=== PATIENT | male | born 1965 | race Caucasian/White ===

== ENCOUNTER 2021-06-24 12:48 | Emergency (ER) | payer BC, OTHER ==
--- NOTE | 2021-06-24 12:52 | ERPHSYRPT ---
- History of Present Illness Time Seen by Provider: 06/24/21 12:52 Source: patient Exam Limitations: no limitations Physician History: This is a right-handed white male patient of Dr. Rigoberto Laird who was working on car vehicle when he suffered a superficial laceration to the dorsal aspect of his right hand. Patient's tetanus status is not up-to-date. Occurred: just prior to arrival Method of Injury: other Severity of Pain-Max: none Severity of Pain-Current: none Extremities Pain Location: hand: right (Dorsal aspect) Modifying Factors: Improves With: nothing Associated Symptoms: none Allergies/Adverse Reactions: No Known Drug Allergies Allergy (Verified 06/24/21 12:59) Home Medications: Fluoxetine HCl [Fluoxetine Dr] 20 mg PO DAILY 06/24/21 [History] LORazepam [Lorazepam] 2 mg PO DAILY 06/24/21 [History] Mirtazapine 30 mg [Remeron 30 mg] 30 mg PO DAILY 06/24/21 [History] Vilazodone HCl [Viibryd] 1 each PO DAILY 06/24/21 [History] Travel Risk - International Travel Have you traveled outside of the country in past 3 weeks: No - Coronavirus Screening Are you exhibiting any of the following symptoms?: No Close contact with a COVID-19 positive Pt in past 14-21 Days: No - Review of Systems Constitutional: No Symptoms Eyes: No Symptoms Ears, Nose, & Throat: No Symptoms Respiratory: No Symptoms Cardiac: No Symptoms Abdominal/Gastrointestinal: No Symptoms Genitourinary Symptoms: No Symptoms Musculoskeletal: Injury (Dorsal aspect right hand) Skin: Other (Superficial stellate laceration dorsal aspect right hand) Neurological: No Symptoms Psychological: No Symptoms Endocrine: No Symptoms Hematologic/Lymphatic: No Symptoms Immunological/Allergic: No Symptoms - Past Medical History Pertinent Past Medical History: Yes - Past Surgical History Past Surgical History: Yes - Nursing Vital Signs Nursing Vital Signs: Initial Vital Signs Temperature 97.8 F 06/24/21 12:52 Pulse Rate 79 06/24/21 12:52 Respiratory Rate 18 06/24/21 12:52 Blood Pressure 131/82 06/24/21 12:52 O2 Sat by Pulse Oximetry 97 06/24/21 12:52 Pain Scale Pain Intensity 0 - Physical Exam General Appearance: no apparent distress, alert Eyes, Ears, Nose, Throat Exam: normal ENT inspection, moist mucous membranes Neck Exam: normal inspection, non-tender, supple, full range of motion Cardiovascular/Respiratory Exam: chest non-tender, no respiratory distress Abdominal Exam: non-tender Back Exam: normal inspection, normal range of motion, No CVA tenderness, No vertebral tenderness Shoulder Exam: normal inspection, non-tender, no evidence of injury, normal ROM Elbow/Forearm Exam: normal inspection, non-tender, no evidence of injury, normal ROM Wrist Exam: normal inspection, non-tender, no evidence of injury, normal ROM Hand Exam: non-tender, normal ROM, laceration (To centimeter stellate, superficial laceration dorsal aspect right hand. No active bleeding.) Neuro/Tendon Exam: normal sensation, normal motor functions, normal tendon functions, no evidence tendon injury Mental Status Exam: alert, oriented x 3, cooperative Skin Exam: laceration (Laceration dorsal aspect right hand. See above) SpO2 Interpretation: normal O2 Delivery: Room Air Procedures - Laceration/Wound Repair Right Dorsal Hand Time of Procedure: 13:15 Wound Location: Right, hand (Dorsal aspect) Wound Length (cm): 2 Wound's Depth, Shape: superficial, stellate Wound Explored: clean (In bloodless field to the base no foreign body noted) Irrigated: Yes Hibiclens Prep: Yes Wound Repaired With: Steri-strips, Dermabond (And benzoin was applied) Sterile Dressing Applied?: Yes Progress: 06/24/21 13:24 The entire right hand was soaked in Hibiclens saline solution. I then scrubbed the wound out aggressively with the same type of solution. There was no bleeding. I was unable to open the laceration to any significance. There were no flaps present. Therefore we covered wound with benzoin solution followed by Dermabond and 1/2 inch Steri-Strips. We then placed a pressure dressing. There are no complications based on procedure well. - Course Nursing assessment & vital signs reviewed: Yes Ordered Tests: Active Orders 24 hr Category Date Time Status Wound Care STAT Care 06/24/21 13:19 Ordered Medication Summary Discontinued Medications Generic Name Dose Route Start Last Admin Trade Name Freq PRN Reason Stop Dose Admin Diphtheria/Tetanus/Acell Pertussis 0.5 ml 06/24/21 13:16 Tdap --Diph,Pertuss(Acell),Tet Vac/Pf 0.5 Ml Vial IM 06/24/21 13:17 .ONCE ONE - Progress Progress: improved Counseled pt/family regarding: diagnosis - Departure Departure Disposition: Home Clinical Impression: Laceration of right hand Condition: Stable Critical Care Time: No Referrals: TERE BEARD [Primary Care Provider] - Follow Up with PCP Additional Instructions: Keep current dressing in place until tomorrow evening. Tomorrow evening, may remove the top dressings leaving the Steri-Strips in place. At that time you may wash the area with soap and water. Keep the Steri-Strips in place until they fall off in approximately 7 days. Trim the Steri-Strips as they curl up. Use Tylenol and ibuprofen for pain control if there are no contraindications.
[2021-06-24 12:59] VITALS: BP 131/82; PULSE 79; O2SAT 97
[2021-06-24] MEDS ORDERED: Adacel Vial IM ONE ×2 (13:16→13:19)
== END 2021-06-24 14:02 | disposition home or self-care (01) ==
LOC: MERGE 12:48 → ED 12:48
DX: S61.411A Laceration without foreign body of right hand, initial encounter (principal); W45.8XXA Other foreign body or object entering through skin, initial encounter; Y93.89 Activity, other specified; Y92.89 Other specified places as the place of occurrence of the external cause
CPT/HCPCS: 12001; 90471; 90715; 99283

== ENCOUNTER 2022-05-15 18:54 | Emergency (ER) | payer BC ==
[2022-05-15] MEDS ORDERED: Sodium Chloride 0.9% 1000 ML 1,000 ML IV SCH (19:45)
[2022-05-15] MEDS ORDERED: Sodium Chloride 0.9% 1000 ML 1,000 ML ONE (19:52)
[2022-05-15 19:55] LABS: Absolute Neutrophil Ct (ANC) 5.65 x10^3/uL (1.4-6.9); Basophil (Absolute #) 0.05 x10^3/uL (0-0.4); Eosinophil % 1.4 % (0.00-5.0); Eosinophil (Absolute #) 0.11 x10^3/uL (0-0.5); Hematocrit 40.7 % (42-50); Hemoglobin 12.7 g/dL (12.5-18.0); Lymphocyte (Absolute #) 1.32 x10^3/uL (1.0-4.6); Lymphocytes % 17.3 % (24.0-44.0); Mean Cell Volume 95.3 fL (78-100); Mean Corpuscular Hemoglobin 29.7 pg (26-32); Mean Corpuscular Hgb Concent. 31.2 g/dL (32-36); Mean Platelet Volume 10.2 fL (7.5-11.0); Monocytes % 6.5 % (0.0-12.0); Neutrophil % 73.8 % (36.0-66.0); Platelet Count 287 x10^3/uL (150-450); Red Blood Count 4.27 x10^6/uL (4.1-5.6); White Blood Count 7.7 x10^3/uL (4.0-10.5)
[2022-05-15 20:14] LABS: ALBUMIN 4.3 g/dL (3.5-5.0); ALKALINE PHOSPHATASE 62 U/L (38-126); ANION GAP 10.3 MEQ/L (5-15); BLOOD UREA NITROGEN 9 mg/dL (9-20); CHLORIDE 105 mmol/L (98-107); Calcium 9.2 mg/dL (8.4-10.2); Carbon Dioxide 26 mmol/L (22-30); Creatinine 1 1.04 mg/dL (0.66-1.25); EST GLOMERULAR FILTRATION RATE > 60.0 ML/MIN; Glucose 111 mg/dL (74-106); Potassium 3.3 mmol/L (3.5-5.1); SGOT/AST 22 U/L (17-59); SGPT/ALT 18 U/L (0-50); SODIUM 138 mmol/L (137-145); Total Protein 7.2 g/dL (6.3-8.2)
--- NOTE | 2022-05-15 20:23 | XRAY ---
Indication: Stroke. Comparison: None Portable chest demonstrates normal heart and lungs. Bony thorax intact with degenerative changes.
--- NOTE | 2022-05-15 20:28 | XRAY ---
Indication: Slurred speech and blurred vision. Conventional contrast enhanced CTA neck performed using 100 cc Isovue 370 contrast. Two-dimensional sagittal and coronal reformatted images obtained. Additional 3-dimensional reformatted images obtained using a separate workstation. Comparison: None Visualized aortic arch is normal in course and caliber with widely patent branch right brachiocephalic, left common carotid, and left subclavian arteries. The common carotid, carotid bulb, internal carotid, and external carotid arteries are bilaterally normal in CTA appearance. Vertebral arteries are also normal in CTA appearance bilaterally with the right slightly larger in caliber. Visualized soft tissues demonstrate homogeneous enhancement of the thyroid gland. Supra and infraglottic airway widely patent. A few subcentimeter cervical and submandibular lymph nodes bilaterally, none pathologically enlarged. Visualized osseous structures intact. Patient is edentulous. Minimal/mild C3-C6 degenerative changes. Lung apices are clear. Impression: Normal CTA neck with contrast exam. Incidental C3-C7 degenerative changes.
--- NOTE | 2022-05-15 20:34 | XRAY ---
Indication: Slurred speech and blurred vision. Conventional contrast enhanced CTA head performed using 100 cc Isovue 370 contrast. Two-dimensional sagittal and coronal reformatted images obtained. Additional 3-dimensional reformatted images obtained using a separate workstation. Comparison: None Distal internal carotid arteries are bilaterally symmetric without critical stenosis, obstruction, or AV malformation. Normal carotid terminus with normal branching A1 and M1 segments bilaterally. More distal left/right anterior cerebral, left/right middle cerebral, and anterior communicating arteries are normal in CTA appearance. Incidental anatomic variant for origin of the left posterior cerebral artery. Posterior circulation demonstrates normal CTA appearance to the basilar, left/right posterior cerebral, and left/right superior cerebellar arteries. Venous drainage/sinuses are unremarkable. Brain parenchyma is negative for abnormal enhancing intra or extra-axial mass. Impression: Normal CTA head with contrast exam.
[2022-05-15 20:42] LABS: NT PRO BNP 41.9 pg/mL (0-900)
[2022-05-15] MEDS ORDERED: BABY ASPIRIN 81 MG CHEW PO ONE (21:20)
[2022-05-15 21:55] LABS: Mucus SLIGHT /HPF (NEGATIVE)
[2022-05-15 21:56] LABS: Appearance CLEAR (CLEAR); Bilirubin NEGATIVE (NEGATIVE); Glucose NEGATIVE (NEGATIVE); Ketones NEGATIVE (NEGATIVE); Ph 6.5 (5-6); Protein,Urine Dip NEGATIVE (Negative); RBC TRACE-INTACT Ery/ul (0-5)
[2022-05-15 21:57] LABS: Dipstick done @ ? MAIN LAB; Nitrite NEGATIVE (NEGATIVE); Urine Cultured Indicated? NO; Urobilinogen 0.2 mg/dL (0-1)
[2022-05-15 22:06] LABS: Amphetamine,Urine POSITIVE (NEGATIVE); Barbiturate,Urine NEGATIVE (NEGATIVE); Benzodiazepine,Urine NEGATIVE (NEGATIVE); Cocaine,Urine NEGATIVE (NEGATIVE); Methadone,Urine NEGATIVE (NEGATIVE); Opiate,Urine NEGATIVE (NEGATIVE); THC,Urine NEGATIVE (NEGATIVE)
[2022-05-15 22:10] VITALS: BP 122/82; PULSE 66; O2SAT 97
[2022-05-15 22:15] LABS: PCP,Urine NEGATIVE (NEGATIVE)
--- NOTE | 2022-05-15 22:17 | ERPHSYRPT ---
- History of Present Illness Time Seen by Provider: 05/15/22 19:09 Source: patient Exam Limitations: no limitations Patient Subjective Stated Complaint: C/O slurred speech this morning. Patient has some "lost time" today. indicates he is being forgetful today; didn't remember speaking to certain people today or driving the car. indicates he was fine/normal at 0620 today when she left for work and that patient called her at approx 0815 with slurred speech. Triage Nursing Assessment: Patient is alert and oriented but did state this as the month of May when asked what the month is. He did give the correct date of the . Attempted to complete NIHSS scale upon patient arrival but patient taken to CT before test completed. Able to complete LOC commands without difficulties, completed BUE and BLE motor function with no drift, and sensory noted to be normal before going to CT. Noted tremors to bilateral hands that are worse in the right; and patient indicates that this is normal for patient and not new. Physician History: 56-year-old male with history of OCD, bipolar disorder, history of stroke with some left visual impairment presented in the ER with with chief complaint of confusion and losing track of time since morning. As per report patient got confused between 6:30 AM-8:15 AM when he tried to back his truck and realized that tree trunks were moving despite having no wend and called his . He did not go to work and talk to his daughter twice. When came back from work this evening she noticed he had slurring of speech which is much improved since then and is almost normal now. Part patient has OCD and has reputation of certain actions daily which she is not doing today which means there is something wrong with him. Also when asked about earlier this morning he had no recollection of any event/calling /daughter. He denies any focal numbness tingling or weakness. Denies any visual disturbance now but earlier reported some black spots bilaterally. No chest pain palpitations or shortness of breath. Denies use of alcohol or drugs. later did report that patient has not been taking his Adderall for the last few days as he ran out. Timing/Duration: today, sudden Severity: moderate Character of Deficits: impaired speech Baseline/Normal Cognition: alert oriented x 3 Current Cognition: alert oriented x 3 Associated Symptoms: denies symptoms Allergies/Adverse Reactions: No Known Drug Allergies Allergy (Verified 05/15/22 19:04) Home Medications: ALPRAZolam 1 MG [Xanax 1 mg] 1 mg PO BID 06/16/14 [History] Bupropion HCl Xl 150 mg [Wellbutrin XL 150 MG] 150 mg PO DAILY 06/16/14 [History] Dextroamphetamine/Amphetamine [Adderall 10 mg Tablet] 10 mg PO BID 06/16/14 [History] Fluoxetine HCl [Fluoxetine Dr] 20 mg PO DAILY 06/24/21 [History] LORazepam [Lorazepam] 2 mg PO DAILY 06/24/21 [History] Mirtazapine 30 mg [Remeron 30 mg] 30 mg PO DAILY 06/24/21 [History] Vilazodone HCl [Viibryd] 1 each PO DAILY 06/24/21 [History] Hx Tetanus, Diphtheria Vaccination/Date Given: Yes Hx Influenza Vaccination/Date Given: No Hx Pneumococcal Vaccination/Date Given: No Immunizations Up to Date: Yes Travel Risk - International Travel Have you traveled outside of the country in past 3 weeks: No - Coronavirus Screening Are you exhibiting any of the following symptoms?: No Close contact with a COVID-19 positive Pt in past 14-21 Days: No - Vaccine Status Have you recieved a Covid-19 vaccination: No - Review of Systems Constitutional: No Symptoms Eyes: No Symptoms Ears, Nose, & Throat: No Symptoms Respiratory: No Symptoms Cardiac: No Symptoms Abdominal/Gastrointestinal: No Symptoms Genitourinary Symptoms: No Symptoms Musculoskeletal: No Symptoms Skin: No Symptoms Neurological: Speech Changes Psychological: Depression Endocrine: No Symptoms Hematologic/Lymphatic: No Symptoms Immunological/Allergic: No Symptoms - Past Medical History Pertinent Past Medical History: Yes Psycho-Social History: Depression, Anxiety - Past Surgical History Past Surgical History: No - Social History Smoking Status: Former smoker Exposure to second hand smoke: No Drug Use: none Patient Lives Alone: No - Nursing Vital Signs Nursing Vital Signs: Initial Vital Signs Temperature 97.8 F 05/15/22 19:06 Pulse Rate 90 05/15/22 19:06 Respiratory Rate 18 05/15/22 19:06 Blood Pressure 125/86 05/15/22 19:06 O2 Sat by Pulse Oximetry 97 05/15/22 19:06 Pain Scale Pain Intensity 0 - [place] Coma Scale Best Eye Response ([place]): (4) open spontaneously Best Verbal Response ([place]): (5) oriented Best Motor Response ([place]): (6) obeys commands [place] Total: 15 - Physical Exam General Appearance: no apparent distress, alert Eye Exam: bilateral eye: normal inspection, PERRL, EOMI Ears, Nose, Throat Exam: normal ENT inspection, TMs normal, pharynx normal, moist mucous membranes Neck Exam: normal inspection, non-tender, supple, full range of motion Respiratory: normal breath sounds, lungs clear Cardiovascular: regular rate/rhythm, normal heart sounds Gastrointestinal: soft, normal bowel sounds, No tenderness Back Exam: normal inspection, normal range of motion, CVA tenderness Extremity Exam: normal inspection, normal range of motion, pelvis stable Mental Status: alert, oriented x 3, cooperative, 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 Exam: normal hearing, normal speech, PERRL, No facial asymmetry, No facial droop Coordination/Gait: normal finger to nose, normal cerebellar function Motor/Sensory: no motor deficit, no sensory deficit, no pronator drift, negative Babinski's sign DTR: bicep (R): 2+, bicep (L): 2+, knee (R): 2+, knee (L): 2+ Skin Exam: normal color SpO2 Interpretation: normal SpO2: 97 O2 Delivery: Room Air - Course EKG Interpreted by Me: RATE (74), Sinus Rhythm, NORMAL AXIS, NORMAL INTERVALS, Non-specific ST Changes, Other (Nonspecific T wave changes) Ordered Tests: Active Orders 24 hr Category Date Time Status Clean Catch Urine Specimen STAT Care 05/15/22 21:24 Active EKG-ER Only STAT Care 05/15/22 19:31 Active IV Insertion STAT Care 05/15/22 19:31 Active CHEST 1 VIEW (PORTABLE) Stat Exams 05/15/22 19:[address] ANGIOGRAPHY NECK [CT] Stat Exams 05/15/22 18:58 Completed CTA HEAD W AND/OR WO CONTRAST [CT] Stat Exams 05/15/22 18:58 Completed HEAD WITHOUT CONTRAST [CT] Stat Exams 05/15/22 19:00 Taken BNP [NT PRO BNP] Stat Lab 05/15/22 19:51 Completed CBC W DIFF Stat Lab 05/15/22 19:51 Completed CMP Stat Lab 05/15/22 19:51 Completed Lactic Acid Stat Lab 05/15/22 19:31 Completed MAG [MAGNESIUM] Stat Lab 05/15/22 19:51 Completed TROPONIN Q4H Lab 05/15/22 19:51 Completed TROPONIN Q4H Lab 05/15/22 23:45 Ordered TROPONIN Q4H Lab 05/16/22 03:45 Ordered UA W/RFX CULTURE Stat Lab 05/15/22 21:26 Completed Urine Triage Profile Stat Lab 05/15/22 21:26 Received Medication Summary Generic Name Dose Route Start Last Admin Trade Name Freq PRN Reason Stop Dose Admin Sodium Chloride 1,000 mls @ 100 mls/hr 05/15/22 19:45 05/15/22 19:52 Sodium Chloride 0.9% 1000 Ml IV 06/14/22 19:44 100 mls/hr .Q10H EMILIA Administration Discontinued Medications Generic Name Dose Route Start Last Admin Trade Name Freq PRN Reason Stop Dose Admin Aspirin 324 mg 05/15/22 21:20 05/15/22 22:01 Aspirin 81 Mg Tab.Chew PO 05/15/22 21:21 324 mg STAT ONE Administration Lab/Rad Data: Laboratory Result Diagrams 05/15/22 19:51 05/15/22 19:51 Laboratory Results 05/15/22 05/15/22 05/15/22 Range/Units 21:26 21:26 19:51 WBC (4.0-10.5) x10^3/uL RBC (4.1-5.6) x10^6/uL Hgb (12.5-18.0) g/dL Hct (42-50) % MCV (78-100) fL MCH (26-32) pg MCHC (32-36) g/dL RDW (11.5-14.0) % Plt Count (150-450) x10^3/uL MPV (7.5-11.0) fL Gran % (36.0-66.0) % Immature Gran % (Auto) (0.00-0.4) % Nucleat RBC Rel Count (0.00-0.1) % Eos # (Auto) (0-0.5) x10^3/uL Immature Gran # (Auto) (0.00-0.03) x10^3u/L Absolute Lymphs (auto) (1.0-4.6) x10^3/uL Absolute Monos (auto) (0.0-1.3) x10^3/uL Absolute Nucleated RBC (0.00-0.01) x10^3u/L Lymphocytes % (24.0-44.0) % Monocytes % (0.0-12.0) % Eosinophils % (0.00-5.0) % Basophils % (0.0-0.4) % Absolute Granulocytes (1.4-6.9) x10^3/uL Basophils # (0-0.4) x10^3/uL Sodium (137-145) mmol/L Potassium (3.5-5.1) mmol/L Chloride (98-107) mmol/L Carbon Dioxide (22-30) mmol/L Anion Gap (5-15) MEQ/L BUN (9-20) mg/dL Creatinine (0.66-1.25) mg/dL Estimated GFR ML/MIN Glucose (74-106) mg/dL Lactic Acid (0.4-2.0) Calcium (8.4-10.2) mg/dL Magnesium (1.6-2.3) mg/dL Total Bilirubin (0.2-1.3) mg/dL AST (17-59) U/L ALT (0-50) U/L Alkaline Phosphatase (38-126) U/L Troponin I < 0.012 (0.000-0.034) ng/mL NT-Pro-B Natriuret Pep (0-900) pg/mL Serum Total Protein (6.3-8.2) g/dL Albumin (3.5-5.0) g/dL Urinalys Dipstick Clnc MAIN LAB Urine Color YELLOW (YELLOW) Urine Appearance CLEAR (CLEAR) Urine pH 6.5 (5-6) Ur Specific Faith 1.010 (1.005-1.025) POC Urine Protein Conf NEGATIVE (Negative) Urine Ketones NEGATIVE (NEGATIVE) Urine Nitrite NEGATIVE (NEGATIVE) Urine Bilirubin NEGATIVE (NEGATIVE) Urine Urobilinogen 0.2 (0-1) mg/dL Urine Leukocytes TRACE (NEGATIVE) Urine WBC (Auto) 3-5 (0-5) /HPF Urine RBC (Auto) NONE (0-2) /HPF U Epithel Cells (Auto) NONE (FEW) /HPF Urine Bacteria (Auto) NONE (NEGATIVE) /HPF Urine RBC TRACE-INTACT (0-5) Armin/ul Urine Mucus (Auto) SLIGHT (NEGATIVE) /HPF Ur Culture Indicated? NO Urine Glucose NEGATIVE (NEGATIVE) mg/dL Urine Opiates Level NEGATIVE (NEGATIVE) Ur Methadone NEGATIVE (NEGATIVE) Urine Barbiturates NEGATIVE (NEGATIVE) Ur Phencyclidine (PCP) NEGATIVE (NEGATIVE) Urine Amphetamine POSITIVE (NEGATIVE) U Benzodiazepine Level NEGATIVE (NEGATIVE) Urine Cocaine NEGATIVE (NEGATIVE) Urine Marijuana (THC) NEGATIVE (NEGATIVE) 05/15/22 05/15/22 05/15/22 Range/Units 19:51 19:51 19:51 WBC 7.7 (4.0-10.5) x10^3/uL RBC 4.27 (4.1-5.6) x10^6/uL Hgb 12.7 (12.5-18.0) g/dL Hct 40.7 L (42-50) % MCV 95.3 (78-100) fL MCH 29.7 (26-32) pg MCHC 31.2 L (32-36) g/dL RDW 13.0 (11.5-14.0) % Plt Count 287 (150-450) x10^3/uL MPV 10.2 (7.5-11.0) fL Gran % 73.8 H (36.0-66.0) % Immature Gran % (Auto) 0.3 (0.00-0.4) % Nucleat RBC Rel Count 0.0 (0.00-0.1) % Eos # (Auto) 0.11 (0-0.5) x10^3/uL Immature Gran # (Auto) 0.02 (0.00-0.03) x10^3u/L Absolute Lymphs (auto) 1.32 (1.0-4.6) x10^3/uL Absolute Monos (auto) 0.50 (0.0-1.3) x10^3/uL Absolute Nucleated RBC 0.00 (0.00-0.01) x10^3u/L Lymphocytes % 17.3 L (24.0-44.0) % Monocytes % 6.5 (0.0-12.0) % Eosinophils % 1.4 (0.00-5.0) % Basophils % 0.7 (0.0-0.4) % Absolute Granulocytes 5.65 (1.4-6.9) x10^3/uL Basophils # 0.05 (0-0.4) x10^3/uL Sodium 138 (137-145) mmol/L Potassium 3.3 L (3.5-5.1) mmol/L Chloride 105 (98-107) mmol/L Carbon Dioxide 26 (22-30) mmol/L Anion Gap 10.3 (5-15) MEQ/L BUN 9 (9-20) mg/dL Creatinine 1.04 (0.66-1.25) mg/dL Estimated GFR > 60.0 ML/MIN Glucose 111 H (74-106) mg/dL Lactic Acid (0.4-2.0) Calcium 9.2 (8.4-10.2) mg/dL Magnesium 2.0 (1.6-2.3) mg/dL Total Bilirubin 0.50 (0.2-1.3) mg/dL AST 22 (17-59) U/L ALT 18 (0-50) U/L Alkaline Phosphatase 62 (38-126) U/L Troponin I (0.000-0.034) ng/mL NT-Pro-B Natriuret Pep 41.9 (0-900) pg/mL Serum Total Protein 7.2 (6.3-8.2) g/dL Albumin 4.3 (3.5-5.0) g/dL Urinalys Dipstick Clnc Urine Color (YELLOW) Urine Appearance (CLEAR) Urine pH (5-6) Ur Specific Faith (1.005-1.025) POC Urine Protein Conf (Negative) Urine Ketones (NEGATIVE) Urine Nitrite (NEGATIVE) Urine Bilirubin (NEGATIVE) Urine Urobilinogen (0-1) mg/dL Urine Leukocytes (NEGATIVE) Urine WBC (Auto) (0-5) /HPF Urine RBC (Auto) (0-2) /HPF U Epithel Cells (Auto) (FEW) /HPF Urine Bacteria (Auto) (NEGATIVE) /HPF Urine RBC (0-5) Armin/ul Urine Mucus (Auto) (NEGATIVE) /HPF Ur Culture Indicated? Urine Glucose (NEGATIVE) mg/dL Urine Opiates Level (NEGATIVE) Ur Methadone (NEGATIVE) Urine Barbiturates (NEGATIVE) Ur Phencyclidine (PCP) (NEGATIVE) Urine Amphetamine (NEGATIVE) U Benzodiazepine Level (NEGATIVE) Urine Cocaine (NEGATIVE) Urine Marijuana (THC) (NEGATIVE) 05/15/22 Range/Units 19:31 WBC (4.0-10.5) x10^3/uL RBC (4.1-5.6) x10^6/uL Hgb (12.5-18.0) g/dL Hct (42-50) % MCV (78-100) fL MCH (26-32) pg MCHC (32-36) g/dL RDW (11.5-14.0) % Plt Count (150-450) x10^3/uL MPV (7.5-11.0) fL Gran % (36.0-66.0) % Immature Gran % (Auto) (0.00-0.4) % Nucleat RBC Rel Count (0.00-0.1) % Eos # (Auto) (0-0.5) x10^3/uL Immature Gran # (Auto) (0.00-0.03) x10^3u/L Absolute Lymphs (auto) (1.0-4.6) x10^3/uL Absolute Monos (auto) (0.0-1.3) x10^3/uL Absolute Nucleated RBC (0.00-0.01) x10^3u/L Lymphocytes % (24.0-44.0) % Monocytes % (0.0-12.0) % Eosinophils % (0.00-5.0) % Basophils % (0.0-0.4) % Absolute Granulocytes (1.4-6.9) x10^3/uL Basophils # (0-0.4) x10^3/uL Sodium (137-145) mmol/L Potassium (3.5-5.1) mmol/L Chloride (98-107) mmol/L Carbon Dioxide (22-30) mmol/L Anion Gap (5-15) MEQ/L BUN (9-20) mg/dL Creatinine (0.66-1.25) mg/dL Estimated GFR ML/MIN Glucose (74-106) mg/dL Lactic Acid 1.2 (0.4-2.0) Calcium (8.4-10.2) mg/dL Magnesium (1.6-2.3) mg/dL Total Bilirubin (0.2-1.3) mg/dL AST (17-59) U/L ALT (0-50) U/L Alkaline Phosphatase (38-126) U/L Troponin I (0.000-0.034) ng/mL NT-Pro-B Natriuret Pep (0-900) pg/mL Serum Total Protein (6.3-8.2) g/dL Albumin (3.5-5.0) g/dL Urinalys Dipstick Clnc Urine Color (YELLOW) Urine Appearance (CLEAR) Urine pH (5-6) Ur Specific Faith (1.005-1.025) POC Urine Protein Conf (Negative) Urine Ketones (NEGATIVE) Urine Nitrite (NEGATIVE) Urine Bilirubin (NEGATIVE) Urine Urobilinogen (0-1) mg/dL Urine Leukocytes (NEGATIVE) Urine WBC (Auto) (0-5) /HPF Urine RBC (Auto) (0-2) /HPF U Epithel Cells (Auto) (FEW) /HPF Urine Bacteria (Auto) (NEGATIVE) /HPF Urine RBC (0-5) Armin/ul Urine Mucus (Auto) (NEGATIVE) /HPF Ur Culture Indicated? Urine Glucose (NEGATIVE) mg/dL Urine Opiates Level (NEGATIVE) Ur Methadone (NEGATIVE) Urine Barbiturates (NEGATIVE) Ur Phencyclidine (PCP) (NEGATIVE) Urine Amphetamine (NEGATIVE) U Benzodiazepine Level (NEGATIVE) Urine Cocaine (NEGATIVE) Urine Marijuana (THC) (NEGATIVE) - Progress Progress: unchanged, re-examined Progress Note: 05/15/22 22:15 Patient has a NIH of 1 currently. Not a very good historian and history is obtained from . Pain prompt CT and CTA head and neck which are essentially unremarkable for any acute findings. Neuro consult is obtained who recommended giving patient aspirin and obtaining MRI for further evaluation. Baseline work- up grossly unremarkable. No MRI services are available here, called [facility] and no beds are available. I have spoken with Dr. GODINEZ at [facility] after prolonged discussion for almost 40 minutes with clinton humphrey and family and patient is excepted for transfer. Later on patient decided not to go to any other facility and will follow-up with his primary care next week. Discussed with patient and son who is a medic in detail about risk of leaving without full work-up which would not only involve delaying the diagnosis, worsening of condition including permanent disability and which do seem understanding and decided to leave. Patient walked out of the ER in stable condition. Discussed with : Other (godinez) Counseled pt/family regarding: lab results, diagnosis, need for follow-up, rad results - Departure Departure Disposition: AMA Clinical Impression: Confusion, Stroke-like symptoms Condition: Stable Critical Care Time: No Referrals: TERE BEARD [Primary Care Provider] - Follow Up with PCP/3 days Instructions: Delirium (Confusion) (DC) Additional Instructions: Follow-up with primary care for reevaluation early Wednesday morning. Return to ER for worsening of symptoms like difficulty speech, numbness tingling weakness, confusion etc. Continue with your current medications.
--- NOTE | 2022-05-18 10:04 | XRAY ---
Indication: Slurred speech. Stroke. Multiple contiguous axial images obtained through the head without contrast. Comparison: November 23, 2009 Ventriculosulcal pattern appears symmetric. New remote lacunar infarct right basal ganglia. No acute intracranial hemorrhage, abnormal extra-axial fluid collection, or mass effect. Fourth ventricle is midline without hydrocephalus. Jno-white matter differentiation preserved. Bony calvarium intact. Visualized paranasal sinuses and mastoid air cells are clear. Impression: Right basal ganglia remote lacunar infarct. Remaining CT head without contrast exam is negative.
== END 2022-05-15 22:25 | disposition left against medical advice (07) ==
LOC: ED 18:54
DX: R41.0 Disorientation, unspecified (principal); R47.81 Slurred speech; Z79.899 Other long term (current) drug therapy; Z28.310 Unvaccinated for COVID-19
CPT/HCPCS: 36000; 36415; 70450; 70496; 70498; 71045; 80053; 80164; 80307; 81015; 83605; 83735; 83880; 84484; 85025; 93005; 99284; A9270-GY

== ENCOUNTER 2024-09-05 13:08 | Emergency (ER) | payer OTHER ==
[2024-09-05 13:18] VITALS: TEMP 97.8
[2024-09-05 13:28] LABS: BASOPHIL % 0.9 % (0.2-1.2); Basophil (Absolute #) 0.06 x10^3/uL (0.01-0.08); Eosinophil % 2.4 % (0.8-7.0); Eosinophil (Absolute #) 0.16 x10^3/uL (0.04-0.54); Hematocrit 43.9 % (40.1-51.0); Hemoglobin 14.1 g/dL (13.7-17.5); IMMATURE GRAN # 0.02 x10^3u/L (0.001-0.031); IMMATURE GRAN % 0.3 % (0.001-0.429); Lymphocyte (Absolute #) 2.98 x10^3/uL (1.32-3.57); Lymphocytes % 45.2 % (21.8-53.1); Mean Cell Volume 88.3 fL (79.0-92.2); Mean Corpuscular Hemoglobin 28.4 pg (25.7-32.2); Mean Corpuscular Hgb Concent. 32.1 g/dL (32.3-36.5); Mean Platelet Volume 9.9 fL (9.4-12.4); Monocyte (Absolute #) 0.68 x10^3/uL (0.30-0.82); Monocytes % 10.3 % (5.3-12.2); Neutrophil % 40.9 % (34.0-67.9); Platelet Count 268 x10^3/uL (163-337); Red Blood Count 4.97 x10^6/uL (4.63-6.08); Red Cell Distribution Width 12.7 % (11.6-14.4); White Blood Count 6.6 x10^3/uL (4.23-9.07)
--- NOTE | 2024-09-05 13:46 | XRAY ---
Indication: Chest pain. Comparison: August 05, 2022 Portable apical lordotic chest hyperinflated with now minimal right midlung subsegmental atelectasis/scarring and tiny calcified granuloma. No focal infiltrate, consolidation, or large effusion. Heart not enlarged. Bony thorax intact again with mild degenerative changes. Impression: Nonacute hyperinflated chest with chronic features.
[2024-09-05 13:59] LABS: ALBUMIN 4.6 g/dL (3.5-5.0); ANION GAP 10.4 MEQ/L (5-15); BILIRUBIN,TOTAL 0.4 mg/dL (0.2-1.3); Calcium 9.6 mg/dL (8.4-10.2); Creatinine 1 0.99 mg/dL (0.66-1.25); EST GLOMERULAR FILTRATION RATE 87.8 ML/MIN; Potassium 4.5 mmol/L (3.5-5.1); Total Protein 7.7 g/dL (6.3-8.2)
--- NOTE | 2024-09-05 14:32 | ERPHSYRPT ---
- History of Present Illness Time Seen by Provider: 09/05/24 13:12 Historian: patient Exam Limitations: no limitations Patient Subjective Stated Complaint: Pt states "I was getting a physical and mentioned that I was having a little chest pain and she sent me here to get c johnd out." Triage Nursing Assessment: Pt presented alert and oriented X 3, skin pwd. Pt ambulates with an upright steady gait, able to speak in clear full sentences. Pt resting comfortably on the bed. Physician History: Patient is a 58-year-old male history of hypercholesterolemia presents to our ED as a referral from his primary care provider for evaluation of chest pain. Patient reports chest pain started on Wednesday 4 days ago. Pain described as a substernal ache that radiated down to his left arm. However patient did not feel it was necessary to obtain medical evaluation so did not follow-up in an emergency department until today. Pain is primarily substernal at this time. No trauma no fever no nausea vomiting or diaphoresis. Patient denies a history of the same. Symptoms are mild to moderate in intensity. No specific worsening or improving factors. Patient denies a cardiac history otherwise. at bedside. They voiced no other complaints or concerns at this time. Portions of this note were created with voice recognition technology. There may be grammatical, spelling, punctuation or sound alike errors Timing/Duration: day(s) (4 days ago) Activities at Onset: none Quality: aching Location: substernal Chest Pain Radiation: arm Severity of Pain-Max: moderate Severity of Pain-Current: mild Modifying Factors: Improves With: nothing Associated Symptoms: denies symptoms Prior Chest Pain/Cardiac Workup: no prior chest pain Nitro Today/Relief: no nitro taken today Aspirin Treatment Today: no aspirin today Allergies/Adverse Reactions: No Known Drug Allergies Allergy (Verified 05/15/22 19:04) Home Medications: Mirtazapine [Remeron] 45 mg PO DAILY 09/05/24 [History] Vilazodone HCl 40 mg PO DAILY 09/05/24 [History] lamoTRIgine [Lamotrigine] 100 mg PO DAILY 09/05/24 [History] Hx Tetanus, Diphtheria Vaccination/Date Given: No Hx Influenza Vaccination/Date Given: No Hx Pneumococcal Vaccination/Date Given: No Immunizations Up to Date: No Travel Risk - International Travel Have you traveled outside of the country in past 3 weeks: No - Emerging Infectious Disease Are you exhibiting symptoms associated with any current EIDs: No - Review of Systems Constitutional: No Symptoms, No Fever, No Chills Eyes: No Symptoms Ears, Nose, & Throat: No Symptoms Respiratory: No Symptoms, No Cough, No Dyspnea Cardiac: No Symptoms, No Chest Pain, No Edema, No Syncope Abdominal/Gastrointestinal: No Symptoms, No Abdominal Pain, No Nausea, No Vomiting, No Diarrhea Genitourinary Symptoms: No Symptoms, No Dysuria Musculoskeletal: No Symptoms, No Back Pain, No Neck Pain Skin: No Symptoms, No Rash Neurological: No Symptoms, No Dizziness, No Focal Weakness, No Sensory Changes Psychological: No Symptoms Endocrine: No Symptoms Hematologic/Lymphatic: No Symptoms Immunological/Allergic: No Symptoms All Other Systems: Reviewed and Negative - Past Medical History Pertinent Past Medical History: Yes Cardiac History: High Cholesterol Psycho-Social History: Depression, Anxiety - Past Surgical History Past Surgical History: Yes Other Surgical History: left eye - Social History Smoking Status: Former smoker Exposure to second hand smoke: Yes Drug Use: none Patient Lives Alone: No - Social Determinants of Health Will the patient participate in the screening: Yes Do you worry about a steady place to live?: No Do you have any problems with any of the following?: No known problems In the past 12 months,have you had to go without utilities?: No Transportation Issues: No Has anyone in your support network made you feel unsafe?: No Have you or anyone in your house had to go without enough: No - Nursing Vital Signs Nursing Vital Signs: Initial Vital Signs Temperature 97.8 F 09/05/24 13:11 Pulse Rate 83 09/05/24 13:11 Respiratory Rate 20 09/05/24 13:11 Blood Pressure 141/101 09/05/24 13:11 O2 Sat by Pulse Oximetry 98 09/05/24 13:11 Pain Scale Pain Intensity 0 - Physical Exam General Appearance: no apparent distress, alert Eye Exam: PERRL/EOMI, eyes nml inspection Ears, Nose, Throat Exam: normal ENT inspection, moist mucous membranes Neck Exam: normal inspection, non-tender, supple, full range of motion Respiratory Exam: normal breath sounds, lungs clear, airway intact, No respiratory distress Cardiovascular Exam: regular rate/rhythm, normal heart sounds, normal peripheral pulses Gastrointestinal/Abdomen Exam: soft, No tenderness, No mass Back Exam: normal inspection, No CVA tenderness, No vertebral tenderness Extremity Exam: normal inspection, normal range of motion Neurologic Exam: alert, oriented x 3, cooperative, normal mood/affect, sensation nml, No motor deficits Skin Exam: normal color, warm, dry Lymphatic Exam: No adenopathy SpO2 Interpretation: normal SpO2: 98 O2 Delivery: Room Air - Course Nursing assessment & vital signs reviewed: Yes EKG Interpreted by Me: RATE (74), Sinus Rhythm, NORMAL AXIS, NORMAL INTERVALS, NORMAL QRS - Radiology Exams Chest X-ray Interpretation: Teleradiologist Report (No acute findings) Ordered Tests: Active Orders 24 hr Category Date Time Status Cath for Specimen-Straight STAT Care 09/05/24 13:18 Completed EKG-ER Only STAT Care 09/05/24 13:17 Active EKG-ER Only STAT Care 09/05/24 14:38 Active IV Insertion STAT Care 09/05/24 13:17 Active Pulse Oximetry (ED) STAT Care 09/05/24 13:17 Active CHEST 1 VIEW (PORTABLE) Stat Exams 09/05/24 13:18 Completed CBC Q48H Lab 09/06/24 06:00 Ordered CBC Q48H Lab 09/08/24 06:00 Ordered CBC Q48H Lab 09/10/24 06:00 Ordered CBC Q48H Lab 09/12/24 06:00 Ordered CBC Q48H Lab 09/14/24 06:00 Ordered CBC Q48H Lab 09/16/24 06:00 Ordered CBC Q48H Lab 09/18/24 06:00 Ordered CBC W DIFF Stat Lab 09/05/24 13:27 Completed CMP Stat Lab 09/05/24 13:27 Completed NT PRO BNPII Stat Lab 09/05/24 13:27 Completed PROTIME WITH INR Stat Lab 09/05/24 14:35 Completed PTT Q4H Lab 09/05/24 18:45 Ordered PTT Q4H Lab 09/05/24 22:45 Ordered PTT Q4H Lab 09/06/24 02:45 Ordered PTT Q4H Lab 09/06/24 06:45 Ordered PTT Q4H Lab 09/06/24 10:45 Ordered PTT Q4H Lab 09/06/24 14:45 Ordered PTT Q4H Lab 09/06/24 18:45 Ordered PTT Q4H Lab 09/06/24 22:45 Ordered PTT Q4H Lab 09/07/24 02:45 Ordered PTT Q4H Lab 09/07/24 06:45 Ordered PTT Q4H Lab 09/07/24 10:45 Ordered PTT Stat Lab 09/05/24 14:35 Completed TROPONIN Q4H Lab 09/05/24 13:27 Completed TROPONIN Q4H Lab 09/05/24 17:30 Ordered TROPONIN Q4H Lab 09/05/24 21:30 Ordered Medication Summary Generic Name Dose Route Start Last Admin Trade Name Frecastillo PRN Reason Stop Dose Admin Heparin Sodium/Dextrose 25,000 units in 250 mls @ 9.3 mls/hr 09/05/24 15:00 09/05/24 14:50 Heparin 25,000 Units/D5w: Use Order Set Quique IV 10/05/24 14:59 12 units/kg /hr .Q24H EMILIA 9.3 mls/hr Administration Protocol 12 UNITS/KG/HR Nitroglycerin/Dextrose 250 mls @ 1.5 mls/hr 09/05/24 14:36 09/05/24 15:05 Ntg 0.2mg/Ml In D5w Glass IV 10/05/24 14:35 5 mcg/min .Q24H PRN 1.5 mls/hr CHEST PAIN Administration Protocol 5 MCG/MIN Discontinued Medications Generic Name Dose Route Start Last Admin Trade Name Danielle PRN Reason Stop Dose Admin Aspirin 324 mg 09/05/24 14:36 09/05/24 14:50 Aspirin 81 Mg Tab.Chew PO 09/05/24 14:37 324 mg STAT ONE Administration Aspirin Confirm 09/05/24 14:49 Aspirin 81 Mg Tab.Chew Administered 09/05/24 14:50 Dose 324 mg .ROUTE .STK-MED ONE Heparin Sodium (Beef Lung) 5,000 unit 09/05/24 14:34 09/05/24 14:51 Heparin 5000 Units/0.5 Ml 5,000 Unit/0.5 Ml Syr IV 09/05/24 14:35 5,000 unit STAT STA Administration Heparin Sodium (Beef Lung) Confirm 09/05/24 14:50 Heparin 5000 Units/0.5 Ml 5,000 Unit/0.5 Ml Syr Administered 09/05/24 14:51 Dose 5,000 unit .ROUTE .STK-MED ONE Lab/Rad Data: Laboratory Result Diagrams 09/05/24 13:27 09/05/24 13:27 Laboratory Results 09/05/24 09/05/24 09/05/24 Range/Units 14:35 13:27 13:27 WBC (4.23-9.07) x10^3/uL RBC (4.63-6.08) x10^6/uL Hgb (13.7-17.5) g/dL Hct (40.1-51.0) % MCV (79.0-92.2) fL MCH (25.7-32.2) pg MCHC (32.3-36.5) g/dL RDW (11.6-14.4) % Plt Count (163-337) x10^3/uL MPV (9.4-12.4) fL Gran % (34.0-67.9) % Immature Gran % (Auto) (0.001-0.429) % Nucleat RBC Rel Count (0.00-0.2) % Eos # (Auto) (0.04-0.54) x10^3/uL Immature Gran # (Auto) (0.001-0.031) x10^3u/L Absolute Lymphs (auto) (1.32-3.57) x10^3/uL Absolute Monos (auto) (0.30-0.82) x10^3/uL Absolute Nucleated RBC (0.00-0.012) x10^3u/L Lymphocytes % (21.8-53.1) % Monocytes % (5.3-12.2) % Eosinophils % (0.8-7.0) % Basophils % (0.2-1.2) % Absolute Granulocytes (1.78-5.38) x10^3/uL Basophils # (0.01-0.08) x10^3/uL PT 10.2 (9.4-12.5) SECONDS INR 0.93 (0.8-3.0) APTT 26.8 (25.1-36.5) SECONDS Sodium 139 (135-145) mmol/L Potassium 4.5 (3.5-5.1) mmol/L Chloride 103 (98-107) mmol/L Carbon Dioxide 31 H (22-30) mmol/L Anion Gap 10.4 (5-15) MEQ/L BUN 14 (9-20) mg/dL Creatinine 0.99 (0.66-1.25) mg/dL Estimated GFR 87.8 ML/MIN Glucose 94 (74-106) mg/dL Calcium 9.6 (8.4-10.2) mg/dL Total Bilirubin 0.40 (0.2-1.3) mg/dL AST 27 (17-59) U/L ALT 15 (0-50) U/L Alkaline Phosphatase 72 (38-126) U/L Troponin I 0.068 H* (0.000-0.033) ng/mL NT-Pro-B Natriuret Pep 261 (<300) pg/mL Serum Total Protein 7.7 (6.3-8.2) g/dL Albumin 4.6 (3.5-5.0) g/dL 09/05/24 Range/Units 13:27 WBC 6.6 (4.23-9.07) x10^3/uL RBC 4.97 (4.63-6.08) x10^6/uL Hgb 14.1 (13.7-17.5) g/dL Hct 43.9 (40.1-51.0) % MCV 88.3 (79.0-92.2) fL MCH 28.4 (25.7-32.2) pg MCHC 32.1 L (32.3-36.5) g/dL RDW 12.7 (11.6-14.4) % Plt Count 268 (163-337) x10^3/uL MPV 9.9 (9.4-12.4) fL Gran % 40.9 (34.0-67.9) % Immature Gran % (Auto) 0.3 (0.001-0.429) % Nucleat RBC Rel Count 0.0 (0.00-0.2) % Eos # (Auto) 0.16 (0.04-0.54) x10^3/uL Immature Gran # (Auto) 0.02 (0.001-0.031) x10^3u/L Absolute Lymphs (auto) 2.98 (1.32-3.57) x10^3/uL Absolute Monos (auto) 0.68 (0.30-0.82) x10^3/uL Absolute Nucleated RBC 0.00 (0.00-0.012) x10^3u/L Lymphocytes % 45.2 (21.8-53.1) % Monocytes % 10.3 (5.3-12.2) % Eosinophils % 2.4 (0.8-7.0) % Basophils % 0.9 (0.2-1.2) % Absolute Granulocytes 2.70 (1.78-5.38) x10^3/uL Basophils # 0.06 (0.01-0.08) x10^3/uL PT (9.4-12.5) SECONDS INR (0.8-3.0) APTT (25.1-36.5) SECONDS Sodium (135-145) mmol/L Potassium (3.5-5.1) mmol/L Chloride (98-107) mmol/L Carbon Dioxide (22-30) mmol/L Anion Gap (5-15) MEQ/L BUN (9-20) mg/dL Creatinine (0.66-1.25) mg/dL Estimated GFR ML/MIN Glucose (74-106) mg/dL Calcium (8.4-10.2) mg/dL Total Bilirubin (0.2-1.3) mg/dL AST (17-59) U/L ALT (0-50) U/L Alkaline Phosphatase (38-126) U/L Troponin I (0.000-0.033) ng/mL NT-Pro-B Natriuret Pep (<300) pg/mL Serum Total Protein (6.3-8.2) g/dL Albumin (3.5-5.0) g/dL - Progress Progress: improved Air Movement: good Progress Note: 58-year-old male presents to our emergency department as a referral from his primary care provider for evaluation of chest pain. Chest pain started approximately 4 days ago. Chest pain substernal radiating down his left arm. Physical exam otherwise nonremarkable. Chest x-ray showed no acute findings. EKG reveals some flattening of T waves laterally. No STEMI. Troponin elevated at 0.068. EKG repeated. No significant change. Patient received heparin drip, nitro drip and aspirin. Patient is resting comfortably at this time. No active pain. We contacted [facility] as patient's requested transfer to Dr. Forest Olmedo. However [facility] has a 2-day wait time. We contacted [facility]. Patient was auto excepted by [facility] at 2:41 PM. Plan of care discussed with patient. He agrees to transfer to [facility] for further evaluation and treatment. Portions of this note were created with voice recognition technology. There may be grammatical, spelling, punctuation or sound alike errors Complexity of problem addressed is moderate acute complicated. Critical care time is between is between 75 minutes in the 104 minutes. Immediate intervention indicated to prevent further deterioration. Complexity of data reviewed and analyzed is extensive. Test ordered test reviewed. Results analyzed and correlated clinically with history and physical exam. Management discussed with [facility]. Patient auto excepted by Dr. Mitchell at 2:41 PM. Risk of complication and or risk of morbidity/mortality of patient man agement is high. Patient requires hospitalization/transfer to higher level of care. Vital stable. Time spent to transfer patient is approximately 20 minutes. Plan of care established for shared decision making. No social determinants of health present to impede follow-up. Portions of this note were created with voice recognition technology. There may be grammatical, spelling, punctuation or sound alike errors 09/05/24 14:47 Blood Culture(s) Obtained: No Antibiotics given: No Counseled pt/family regarding: lab results, diagnosis, rad results - Departure Departure Disposition: Transfer Clinical Impression: Chest pain, ACS (acute coronary syndrome), NSTEMI (non-ST elevated myocardial infarction) Condition: Stable Critical Care Time: Yes Critical Care Time(excluding separately billable procedures): Critical 75-104 mins Referrals: TICO SALGUERO NP [Primary Care Provider] - Follow up/PCP as directed
[2024-09-05] MEDS ORDERED: BABY ASPIRIN 81 MG CHEW ONE (14:49)
[2024-09-05] MEDS: Heparin 25,000 units/D5W: USE ORDER SET PROTO 25,000 UNITS/250 ML BAG IV SCH (14:50)
[2024-09-05] MEDS ORDERED: HEPARIN 5000 UNITS/0.5 ML (HIGH RISK MED) ONE (14:50)
[2024-09-05] MEDS: BABY ASPIRIN 81 MG CHEW PO ONE (14:50)
[2024-09-05] MEDS ORDERED: Heparin 25,000 units/D5W: USE ORDER SET PROTO 25,000 UNITS/250 ML BAG IV ONE (14:50)
[2024-09-05] MEDS: HEPARIN 5000 UNITS/0.5 ML (HIGH RISK MED) IV STA (14:51)
[2024-09-05] MEDS ORDERED: Ntg 0.2MG/Ml in D5W GLASS*** 250 ML IV ONE (14:52)
[2024-09-05 14:54] LABS: INR 0.93 (0.8-3.0); PROTIME 10.2 SECONDS (9.4-12.5); PTT 26.8 SECONDS (25.1-36.5)
[2024-09-05] MEDS: Ntg 0.2MG/Ml in D5W GLASS*** 250 ML IV PRN (15:05)
[2024-09-05 16:19] VITALS: BP 142/101; PULSE 86; RESP 16; O2SAT 96
== END 2024-09-05 16:43 | disposition short-term general hospital (02) ==
LOC: ED 13:08
DX: I21.4 Non-ST elevation (NSTEMI) myocardial infarction (principal); I24.9 Acute ischemic heart disease, unspecified; R07.9 Chest pain, unspecified; E78.5 Hyperlipidemia, unspecified; Z79.899 Other long term (current) drug therapy
CPT/HCPCS: 36415; 71045; 80053; 83880; 84484; 85025; 85610; 85730; 93005; 94760; 96374; 99285; 99291; 99292; J1644; A9270-GY